=== PATIENT | male | born 1935 | race Caucasian/White ===

== ENCOUNTER 2017-08-21 15:29 | Emergency (ER) | payer MEDICARE, MEDICAID ==
[2017-08-21 15:38] VITALS: PULSE 71; RESP 18; TEMP 97.6; O2SAT 97
--- NOTE | 2017-08-21 16:15 | C.PDOC ---
History Of Present Illness 81 year old male with PMHx of HTN, DM and glaucoma is sent here from his PMD's office for evaluation SP falling down a flight of stairs. Patient reports he fell down a flight of stairs hitting his back and his head 8 days ago. Patient was in [place] when this occurred went to a Hospital there and got a CT of the head and abdomen done, CT of the head showed small intracranial hemorrhage and he has an appointment for a neurologist on the . Patient was in the Hospital for 2 days for observation. Patient has a large ecchymotic mass on his left flank that worried his PMD. Patient denies any fever, nausea, abdominal pain, wekanes, numbness, LOC, blurry vision. - HPI Time Seen by Provider: 08/21/17 15:37 Chief Complaint (Nursing): Trauma History Per: Patient History/Exam Limitations: no limitations Onset/Duration Of Symptoms: Days Injury Occurred (Timing): Days Ago: (8 days ago) Location Of Injury: Left: Back, Posterior: Back Severity: None Recent travel outside of the [place]: No Additional History Per: Patient - Fall Fall:Prior To Injury: Tripped Past Medical History Reviewed: Historical Data, Nursing Documentation, Vital Signs Vital Signs: Last Vital Signs Temp 97.6 F 08/21/17 15:33 Pulse 71 08/21/17 15:33 Resp 18 08/21/17 15:33 BP 184/73 H 08/21/17 15:33 Pulse Ox 97 08/21/17 17:54 - Medical History PMH: HTN Surgical History: No Surg Hx Family History: States: Unknown Family Hx - Social History Hx Alcohol Use: No Hx Substance Use: No - Immunization History Hx Tetanus Toxoid Vaccination: No Hx Influenza Vaccination: Yes Hx Pneumococcal Vaccination: No Review Of Systems Constitutional: Negative for: Fever, Chills Eyes: Negative for: Vision Change Cardiovascular: Negative for: Chest Pain, Palpitations Respiratory: Negative for: Cough, Shortness of Breath Gastrointestinal: Negative for: Nausea, Vomiting, Abdominal Pain Musculoskeletal: Positive for: Back Pain Skin: Positive for: Bruising (left flank) Neurological: Negative for: Weakness, Numbness, Headache Physical Exam - Physical Exam Appears: Non-toxic, No Acute Distress Skin: Normal Color, Warm, Dry Head: Normacephalic, Other (stitches on top of his head) Nose: No Discharge, No Deformity Oral Mucosa: Moist Neck: Normal ROM, Supple Chest: Symmetrical Cardiovascular: Rhythm Regular, No Murmur Respiratory: Normal Breath Sounds, No Rales, No Rhonchi, No Wheezing Gastrointestinal/Abdominal: Soft, No Tenderness, No Distention, No Rebound Back: No Other (large ecchymotic firm mass on his left flank, ecchymosis extends accross his midline to his right flank and over his lower abdomen) Extremity: Normal ROM, No Pedal Edema, No Calf Tenderness, No Deformity, No Swelling Neurological/Psych: Oriented x3, Normal Speech, Normal Cognition Gait: Steady ED Course And Treatment - Laboratory Results Result Diagrams: 08/21/17 17:13 O2 Sat by Pulse Oximetry: 97 (On RA) Pulse Ox Interpretation: Normal - CT Scan/US CT head Other Rad Studies (CT/US): Interpreted By Me, Read By Radiologist, Radiology Report Reviewed CT/US Interpretation: FINDINGS: HEMORRHAGE: No intracranial hemorrhage. BRAIN : No mass effect or edema. Focal gyral hyperdensity in the high right frontoparietal region, likely reflecting laminar necrosis. No evidence of acute infarct. Mild to moderate diffuse atrophy consistent with age. There is moderate periventricular as well as patchy deep and subcortical white matter lucency consistent with age related microvascular ischemic change. VENTRICLES: Unremarkable. No hydrocephalus. CALVARIUM: Unremarkable. PARANASAL SINUSES : Unremarkable as visualized. No significant inflammatory changes. MASTOID AIR CELLS: Unremarkable as visualized. No inflammatory changes. OTHER FINDINGS : High left frontoparietal scalp laceration with kimberly. IMPRESSION: No intracranial hemorrhage. Age related involutional change. 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 CT abd/pelvis Other Rad Studies (CT/US): Interpreted By Me, Read By Radiologist, Radiology Report Reviewed CT/US Interpretation: FINDINGS: Large left flank hematoma extending over a cephalocaudal dimension of 10 cm. Orthogonal measurements 3.0 x 8.4 cm. There is a component contiguous with the gluteal muscles. The attenuation features within the mask suggest hematoma consistent with clinical presentation of trauma. There is no adjacent osseous abnormality. The underlying iliac bone on the left is normal. LOWER THORAX: Unremarkable. LIVER: Unremarkable. No gross lesion or ductal dilatation. GALLBLADDER AND BILE DUCTS: Unremarkable. PANCREAS: Unremarkable. No gross lesion or ductal dilatation. SPLEEN: Unremarkable. ADRENALS: Unremarkable. No mass. KIDNEYS AND URETERS: Unremarkable. No hydronephrosis. No solid mass. VASCULATURE: Unremarkable. No aortic aneurysm. BOWEL: Unremarkable. No obstruction. No gross mural thickening. Diverticulosis without an acute inflammatory component or other associated pathologic process. APPENDIX: Unremarkable. Normal appendix. PERITONEUM: Unremarkable. No free fluid. No free air. LYMPH NODES: Unremarkable. No enlarged lymph nodes. BLADDER: Unremarkable. REPRODUCTIVE: Enlarged prostate 5.6 x 5.7 cm. BONES: Sclerotic focus identified medial aspect left iliac bone likely a bone island. OTHER FINDINGS: There is a component of dependent edema of the level of the lumbar spine and pelvis. IMPRESSION: Left flank and gluteal hematoma without underlying osseous abnormality. No intra-abdominal/ findings associated with this. Medical Decision Making Medical Decision Making: Impression : 81 y/o male Sp falling a flight of stairs hitting his back and head. Plan: * CT abd/pelvis * CT head * Blood work Disposition Discussed With Dr.: Corey Villalta Counseled Patient/Family Regarding: Studies Performed, Diagnosis, Need For Followup - Disposition Referrals: Corey Villalta MD [Staff Provider] - Disposition: HOME/ ROUTINE Disposition Time: 18:20 Condition: STABLE Forms: Gen Discharge Inst Scottish, [employer] (Scottish) - POA Present On Arrival: None - Clinical Impression Clinical Impression: Hematoma of left flank - Scribe Statement The provider has reviewed the documentation as recorded by the Scribe Joe Adames All medical record entries made by the Scribe were at my direction and personally dictated by me. I have reviewed the chart and agree that the record accurately reflects my personal performance of the history, physical exam, medical decision making, and the department course for this patient. I have also personally directed, reviewed, and agree with the discharge instructions and disposition.
--- NOTE | 2017-08-21 17:02 | CT ---
PROCEDURE: CT HEAD WITHOUT CONTRAST. HISTORY: fall 8 days prior , prior ICH COMPARISON: None available. TECHNIQUE: Axial computed tomography images were obtained through the head/brain without intravenous contrast. Radiation dose: Total exam DLP = 866.46 mGy-cm. This CT exam was performed using one or more of the following dose reduction techniques: Automated exposure control, adjustment of the mA and/or kV according to patient size, and/or use of iterative reconstruction technique. FINDINGS: HEMORRHAGE: No intracranial hemorrhage. BRAIN: No mass effect or edema. Focal gyral hyperdensity in the high right frontoparietal region, likely reflecting laminar necrosis. No evidence of acute infarct. Mild to moderate diffuse atrophy consistent with age. There is moderate periventricular as well as patchy deep and subcortical white matter lucency consistent with age related microvascular ischemic change. VENTRICLES: Unremarkable. No hydrocephalus. CALVARIUM: Unremarkable. PARANASAL SINUSES: Unremarkable as visualized. No significant inflammatory changes. MASTOID AIR CELLS: Unremarkable as visualized. No inflammatory changes. OTHER FINDINGS: High left frontoparietal scalp laceration with kimberly IMPRESSION: No intracranial hemorrhage. Age related involutional change. 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
[2017-08-21 17:15] LABS: MEAN CELL VOLUME 91.1 fL (80.0-94.0); MEAN CORPUSCULAR HEMOGLOBIN 31.3 pg (27.0-31.0); MEAN CORPUSCULAR HGB CONC 34.3 g/dL (33.0-37.0); RED CELL DISTRIBUTION WIDTH 14.4 % (11.5-14.5); WHITE BLOOD COUNT 6.9 K/uL (4.8-10.8)
--- NOTE | 2017-08-21 17:23 | CT ---
PROCEDURE: CT Abdomen and Pelvis without intravenous contrast HISTORY: fall 8 days prior , large left posterior hematoma COMPARISON: None. TECHNIQUE: Unenhanced study. Neither oral nor intravenous contrast administered. Radiation dose: Total exam DLP = 342.13 mGy-cm. This CT exam was performed using one or more of the following dose reduction techniques: Automated exposure control, adjustment of the mA and/or kV according to patient size, and/or use of iterative reconstruction technique. FINDINGS: Large left flank hematoma extending over a cephalocaudal dimension of 10 cm. Orthogonal measurements 3.0 x 8.4 cm. There is a component contiguous with the gluteal muscles. The attenuation features within the mask suggest hematoma consistent with clinical presentation of trauma. There is no adjacent osseous abnormality. The underlying iliac bone on the left is normal. LOWER THORAX: Unremarkable. LIVER: Unremarkable. No gross lesion or ductal dilatation. GALLBLADDER AND BILE DUCTS: Unremarkable. PANCREAS: Unremarkable. No gross lesion or ductal dilatation. SPLEEN: Unremarkable. ADRENALS: Unremarkable. No mass. KIDNEYS AND URETERS: Unremarkable. No hydronephrosis. No solid mass. VASCULATURE: Unremarkable. No aortic aneurysm. BOWEL: Unremarkable. No obstruction. No gross mural thickening. Diverticulosis without an acute inflammatory component or other associated pathologic process. APPENDIX: Unremarkable. Normal appendix. PERITONEUM: Unremarkable. No free fluid. No free air. LYMPH NODES: Unremarkable. No enlarged lymph nodes. BLADDER: Unremarkable. REPRODUCTIVE: Enlarged prostate 5.6 x 5.7 cm BONES: Sclerotic focus identified medial aspect left iliac bone likely a bone island. OTHER FINDINGS: There is a component of dependent edema of the level of the lumbar spine and pelvis. IMPRESSION: Left flank and gluteal hematoma without underlying osseous abnormality. No intra-abdominal/ findings associated with this.
[2017-08-21 18:25] VITALS: BP 131/85
== END 2017-08-21 19:05 | disposition home or self-care (01) ==
LOC: C.ER 15:29
DX: S30.1XXA Contusion of abdominal wall, initial encounter (principal); W10.9XXA Fall (on) (from) unspecified stairs and steps, initial encounter; I10 Essential (primary) hypertension; E11.9 Type 2 diabetes mellitus without complications